=== PATIENT | male | born 1985 | race American Indian/Alaskan Native ===

== ENCOUNTER 2022-03-24 11:24 | Emergency (ER) | payer OTHER ==
[2022-03-24] MEDS ORDERED: LIDOCAINE (2%) 20 MG/1 ML VIAL 20 ML MDV INFILTRATI ONE (20:23)
--- NOTE | 2022-03-24 20:25 | Emergency Department Report ---
ED General Adult HPI - General Chief complaint: Skin/Abscess/Foreign Body Stated complaint: BOIL ON NECK Time Seen by Provider: 03/24/22 19:56 Source: patient Mode of arrival: Ambulatory Limitations: No Limitations - History of Present Illness Initial comments: 36-year-old male with no significant past medical history reports to the ER with abscess to the right upper back area at the shoulder border proximal to the body. Patient denies any fevers, chills. Patient reports no other acute symptoms at this time. Patient reports he has been dealing with this boil for about 5 days. Severity scale (0 -10): 6 - Related Data Previous Rx's Medication Instructions Recorded Last Taken Type Acetaminophen/Codeine [Tylenol #3] 1 tab PO Q6H PRN #20 tab 07/07/15 Unknown Rx Ibuprofen [Motrin] 600 mg PO Q8H PRN #40 tablet 07/07/15 Unknown Rx Acetaminophen/Codeine [Tylenol 1 tab PO Q6H PRN 2 Days #6 tab 03/24/22 Unknown Rx /Codeine # 3 tab] Sulfamethoxazole/Trimethoprim 1 each PO BID 10 Days #20 tab 03/24/22 Unknown Rx [Bactrim DS TAB] Allergies Allergy/AdvReac Type Severity Reaction Status Date / Time No Known Allergies Allergy Unverified 07/07/15 10:24 ED Review of Systems ROS: Stated complaint: BOIL ON NECK Other details as noted in HPI Comment: All other systems reviewed and negative Skin: other (Abscess) ED Past Medical Hx - Past Medical History Previous Medical History?: No - Surgical History Past Surgical History?: No - Social History Smoking Status: Never Smoker Substance Use Type: None - Medications Home Medications: Home Medications Medication Instructions Recorded Confirmed Last Taken Type Acetaminophen/Codeine [Tylenol #3] 1 tab PO Q6H PRN #20 tab 07/07/15 Unknown Rx Ibuprofen [Motrin] 600 mg PO Q8H PRN #40 tablet 07/07/15 Unknown Rx Acetaminophen/Codeine [Tylenol 1 tab PO Q6H PRN 2 Days #6 tab 03/24/22 Unknown Rx /Codeine # 3 tab] Sulfamethoxazole/Trimethoprim 1 each PO BID 10 Days #20 tab 03/24/22 Unknown Rx [Bactrim DS TAB] ED Physical Exam - General Limitations: No Limitations General appearance: alert, in no apparent distress - Head Head exam: Present: atraumatic, normocephalic - Eye Eye exam: Present: normal appearance - ENT ENT exam: Present: mucous membranes moist - Neck Neck exam: Present: normal inspection - Respiratory Respiratory exam: Present: normal lung sounds bilaterally. Absent: respiratory distress - Cardiovascular Cardiovascular Exam: Present: regular rate, normal rhythm. Absent: systolic murmur, diastolic murmur, rubs, gallop - GI/Abdominal GI/Abdominal exam: Present: soft, normal bowel sounds - Rectal Rectal exam: Present: deferred - Extremities Exam Extremities exam: Present: normal inspection - Back Exam Back exam: Present: normal inspection - Neurological Exam Neurological exam: Present: alert, oriented X3 - Psychiatric Psychiatric exam: Present: normal affect, normal mood - Skin Skin exam: Present: warm, dry, intact, normal color, other (Abscess to the right shoulder area.). Absent: rash ED Course Vital Signs 03/24/22 03/24/22 12:07 22:51 Temperature 98.3 F Pulse Rate 88 84 Respiratory 17 12 Rate Blood Pressure 157/95 153/91 [Right] O2 Sat by Pulse 100 100 Oximetry - I & D Right Upper Posterior Shoulder Type of Procedure: Simple Site: Right upper back at shoulder level Blade Size: 11 I & D Procedure: betadine prep Progress: Lidocaine 2% 1 cc use to numb area. Purulent drainage present around 10 cc. Packing placed. Dressing placed on top of packing. Patient tolerated procedure well. ED Medical Decision Making - Medical Decision Making See I&D procedure section. Patient informed to follow back up in the ER in 24 to 48 hours for reassessment of abscess and removal of packing. Patient started on Bactrim DS twice daily for 10 days and pain medicine given for pain control. Patient agrees with plan of care verbalized understanding. Vital Signs 03/24/22 03/24/22 12:07 22:51 Temperature 98.3 F Pulse Rate 88 84 Respiratory 17 12 Rate Blood Pressure 157/95 153/91 [Right] O2 Sat by Pulse 100 100 Oximetry Critical care attestation.: If time is entered above; I have spent that time in minutes in the direct care of this critically ill patient, excluding procedure time. ED Disposition Clinical Impression: Abscess of upper back excluding scapular region Disposition: 01 HOME / SELF CARE / HOMELESS Is pt being admited?: No Condition: Stable Instructions: Skin Abscess, Incision and Drainage, Care After Additional Instructions: Follow up back in ER in 24 to 48 hrs for reassessment of abscess and packing removal Prescriptions: Sulfamethoxazole/Trimethoprim [Bactrim DS TAB] 1 each PO BID 10 Days #20 tab Acetaminophen/Codeine [Tylenol /Codeine # 3 tab] 1 tab PO Q6H PRN 2 Days #6 tab PRN Reason: Pain , Severe (7-10) Referrals: MARICEL PAGE MD [Primary Care Provider] - 3-5 Days Forms: Work/School Release Form(ED)
[2022-03-24] MEDS ORDERED: HYDROcodone/ACETAMINOPHEN 5-325 MG TAB PO ONE (22:12)
[2022-03-24 22:51] VITALS: BP 153/91
== END 2022-03-24 22:52 | disposition home or self-care (01) ==
LOC: ED 11:24
DX: L02.212 Cutaneous abscess of back [any part, except buttock and flank] (principal)
CPT/HCPCS: 10060; 99282; J3490

== ENCOUNTER 2022-03-27 13:33 | Emergency (ER) | payer OTHER ==
--- NOTE | 2022-03-27 16:12 | Emergency Department Report ---
ED Recheck HPI - General Chief Complaint: Wound/Laceration Stated Complaint: REMOVE PACKING WOUND Time Seen by Provider: 03/27/22 15:33 Source: patient Mode of arrival: Ambulatory Limitations: No Limitations - History of Present Illness Initial Comments: 36-year-old black male presents to the emergency department for recheck of abscess to his neck. He states that he was seen here 48 hours ago and had an I&D of his neck with packing placed and was advised to return here for packing removal and wound recheck. He states that he is currently on Bactrim at home and has not had a fever and has had significant decrease in pain and swelling of abscessed area. Complaint: wound re-check Initial Visit For: abscess Returns Today for: wound recheck Symptoms Since Prior Visit: improved Context: planned re-check, other (For packing removal) Associated Symptoms: none Treatments Prior to Arrival: Given Antibiotics on, Given Pain Meds on - Related Data Previous Rx's Medication Instructions Recorded Last Taken Type Acetaminophen/Codeine [Tylenol #3] 1 tab PO Q6H PRN #20 tab 07/07/15 Unknown Rx Ibuprofen [Motrin] 600 mg PO Q8H PRN #40 tablet 07/07/15 Unknown Rx Acetaminophen/Codeine [Tylenol 1 tab PO Q6H PRN 2 Days #6 tab 03/24/22 Unknown Rx /Codeine # 3 tab] Sulfamethoxazole/Trimethoprim 1 each PO BID 10 Days #20 tab 03/24/22 Unknown Rx [Bactrim DS TAB] Allergies Allergy/AdvReac Type Severity Reaction Status Date / Time No Known Allergies Allergy Verified 03/27/22 13:51 ED Review of Systems ROS: Stated complaint: REMOVE PACKING WOUND Other details as noted in HPI Comment: All other systems reviewed and negative Constitutional: denies: chills, diaphoresis Respiratory: denies: shortness of breath Cardiovascular: denies: chest pain Gastrointestinal: denies: abdominal pain, nausea, vomiting Musculoskeletal: denies: back pain Neurological: denies: headache, weakness ED Past Medical Hx - Social History Smoking Status: Never Smoker Substance Use Type: None - Medications Home Medications: Home Medications Medication Instructions Recorded Confirmed Last Taken Type Acetaminophen/Codeine [Tylenol #3] 1 tab PO Q6H PRN #20 tab 07/07/15 Unknown Rx Ibuprofen [Motrin] 600 mg PO Q8H PRN #40 tablet 07/07/15 Unknown Rx Acetaminophen/Codeine [Tylenol 1 tab PO Q6H PRN 2 Days #6 tab 03/24/22 Unknown Rx /Codeine # 3 tab] Sulfamethoxazole/Trimethoprim 1 each PO BID 10 Days #20 tab 03/24/22 Unknown Rx [Bactrim DS TAB] ED Physical Exam - General Limitations: No Limitations General appearance: alert, in no apparent distress - Head Head exam: Present: atraumatic, normocephalic - Eye Eye exam: Present: normal appearance. Absent: conjunctival injection - Neck Neck exam: Absent: normal inspection, tenderness - Expanded Neck Exam Expanded Neck exam: Absent: tenderness 1 - healing abscess, no erythema or drainage noted. minimal edema. - Respiratory Respiratory exam: Absent: respiratory distress - Cardiovascular Cardiovascular Exam: Present: regular rate - GI/Abdominal GI/Abdominal exam: Absent: distended - Extremities Exam Extremities exam: Present: normal inspection - Back Exam Back exam: Present: normal inspection - Neurological Exam Neurological exam: Present: alert, oriented X3 - Psychiatric Psychiatric exam: Present: normal affect, normal mood - Skin Skin exam: Present: warm, dry, normal color ED Course Vital Signs 03/27/22 13:48 Temperature 98.7 F Pulse Rate 77 Respiratory 12 Rate Blood Pressure 146/78 [Right] O2 Sat by Pulse 100 Oximetry ED Recheck MDM - Differential Diagnosis Wound Recheck - Medical Decision Making 36-year-old black male presents to the emergency department for recheck of abscess to his neck. He states that he was seen here 48 hours ago and had an I&D of his neck with packing placed and was advised to return here for packing removal and wound recheck. He states that he is currently on Bactrim at home and has not had a fever and has had significant decrease in pain and swelling of abscessed area. No packing noted. Abscess mostly healed. No erythema or drainage noted. Minimal edema noted. No tenderness noted. Patient advised to continue antibiotics as previously prescribed and follow-up with primary care provider if worsening symptoms. He verbalizes understanding of and agreement with plan of care. Critical care attestation.: If time is entered above; I have spent that time in minutes in the direct care of this critically ill patient, excluding procedure time. ED Disposition Clinical Impression: Encounter for wound re-check Disposition: 01 HOME / SELF CARE / HOMELESS Is pt being admited?: No Does the pt Need Aspirin: No Condition: Stable Additional Instructions: Continue antibiotics as previously prescribed. Follow-up with your primary care provider or in the emergency department as needed. Referrals: MARICEL PAGE MD [Staff Physician] - 3-5 Days Forms: Work/School Release Form(ED) Time of Disposition: 16:12
[2022-03-27 16:39] VITALS: BP 123/71
== END 2022-03-27 16:32 | disposition home or self-care (01) ==
LOC: ED 13:33
DX: L02.11 Cutaneous abscess of neck (principal); Z48.00 Encounter for change or removal of nonsurgical wound dressing
CPT/HCPCS: 99282